=== PATIENT | female | born 1985 | race African-American/Black ===

== ENCOUNTER 2017-11-07 13:16 | Emergency (ER) | payer SELFPAY ==
[2017-11-07 13:50] LABS: U PREG PATIENT POSITIVE (NEG)
[2017-11-07 14:10] LABS: BILIRUBIN,URINE NEG (NEG); CLARITY,URINE CLOUDY; COLOR,URINE YELLOW; GLUCOSE,URINE NEG (NEG); NITRITE,URINE NEG (NEG); UROBILINOGEN,URINE 0.2 mg/dL (0.2 mg/dL)
[2017-11-07 14:11] LABS: BACTERIA,URINE FEW /HPF (0-FEW); SQUAMOUS EPITHELIAL CELL,UR MOD /LPF
--- NOTE | 2017-11-07 14:54 | RAD ---
EXAM: Obstetrics sonogram. HISTORY: Vaginal bleeding. TECHNIQUE: Sonographic imaging of the gravid uterus was performed. COMPARISON: None. FINDINGS: The uterus measures 9.5 x 7.0 x 6.0 cm. There is an intrauterine gestational sac with yolk sac. The mean sac diameter is 5.5 mm. The yolk sac measures 3.4 mm. No pole is seen. There is an ill-defined region of hypoechogenicity adjacent to the gestational sac measuring 7 mm, possibly a small subchorionic hematoma. The ovaries are normal in size. There is a 2.8 cm right ovarian cyst. There is normal blood flow within both ovaries. There are bilateral ovarian follicles. IMPRESSION: 1. Small intrauterine gestational sac with yolk sac. No pole is seen at this early gestation. Correlate with serial beta hCG levels. Sonographic follow-up can be performed to assess viability. 2. Suspected 7 mm subchorionic hematoma along the gestational sac. 3. 2.8 cm right ovarian cyst. Electronically signed by: Blanquita Bha MD (11/07/2017 2:52 PM) [facility]
--- NOTE | 2017-11-07 15:23 | PHYS DOC ---
Past History Past Medical History: Other Past Surgical History: Other Smoking: Non-smoker Alcohol Use: None Drug Use: None Adult General Chief Complaint Chief Complaint: VAGINAL BLEEDING HPI HPI 32 -year-old female patient E2 A1 with LMP of September 27 at 5 weeks of gestation complaining of vaginal bleeding since yesterday. Patient states she had to home positive test and has appointment with clinic next week. Patient states she had intercourse 2 days ago and since yesterday had vaginal spotting while she is wiping herself as a small amount of dark-colored blood with mild lower abdominal cramping pain without nausea, vomiting, urinary symptoms, fever and chills. She had O+ blood type. Review of Systems Review of Systems Constitutional: Denies fever or chills [] Eyes: Denies change in visual acuity, redness, or eye pain [] HENT: Denies nasal congestion or sore throat [] Respiratory: Denies cough or shortness of breath [] Cardiovascular: No additional information not addressed in HPI [] GI: Denies abdominal pain, nausea, vomiting, bloody stools or diarrhea [] : Denies dysuria or hematuria, reports vaginal bleeding[] Musculoskeletal: Denies back pain or joint pain [] Integument: Denies rash or skin lesions [] Neurologic: Denies headache, focal weakness or sensory changes [] Endocrine: Denies polyuria or polydipsia [] All other systems were reviewed and found to be within normal limits, except as documented in this note. Allergies Allergies Allergies Coded Allergies Type Severity Reaction Last Updated Verified No Known Drug Allergies 11/07/17 No Physical Exam Physical Exam Constitutional: Well developed, well nourished, no acute distress, non-toxic appearance. [] HENT: Normocephalic, atraumatic, oropharynx moist, no oral exudates, nose normal. [] Eyes: PERRLA, EOMI, conjunctiva normal, no discharge. [] Neck: Normal range of motion, no tenderness, supple, no stridor. [] Cardiovascular:Heart rate regular rhythm, no murmur [] Lungs & Thorax: Bilateral breath sounds clear to auscultation [] Abdomen: Bowel sounds normal, soft, no tenderness, no masses, no pulsatile masses, she refuses vaginal exam. [] Skin: Warm, dry, no erythema, no rash. [] Back: No tenderness, no CVA tenderness. [] Extremities: No tenderness, no cyanosis, no clubbing, ROM intact, no edema. [] Neurologic: Alert and oriented X 3, normal motor function, normal sensory function, no focal deficits noted. [] Psychologic: Affect normal, judgement normal, mood normal. [] Current Patient Data Vital Signs Vital Signs Date Time Temp Pulse Resp B/P (MAP) Pulse Ox O2 Delivery O2 Flow Rate FiO2 11/07/17 13:20 98.6 93 20 96 Room Air Lab Results Laboratory Tests Test 11/07/17 13:23 11/07/17 14:30 Urine Collection Type Unknown Urine Color Yellow Urine Clarity Cloudy Urine pH 5.5 Urine Specific [place] 1.020 Urine Protein Neg (NEG-TRACE) Urine Glucose (UA) Neg mg/dL (NEG) Urine Ketones (Stick) Neg mg/dL (NEG) Urine Blood Large (NEG) Urine Nitrite Neg (NEG) Urine Bilirubin Neg (NEG) Urine Urobilinogen Dipstick 0.2 mg/dL (0.2 mg/dL) Urine Leukocyte Esterase Neg (NEG) Urine RBC 3-5 /HPF (0-2) Urine WBC 1-4 /HPF (0-4) Urine Squamous Epithelial Cells Mod /LPF Urine Bacteria Few /HPF (0-FEW) Urine Mucus Slight /LPF Urine Test Positive (NEG) Maternal Serum HCG Beta Subunit 959 mIU/mL (0-6) H EKG EKG [] Radiology/Procedures Radiology/Procedures [][address] [address] IMAGING REPORT Signed PATIENT: SOLITARIO MOSHER ACCOUNT: [id number] : 1985 LOCATION: ER AGE: 32 SEX: F EXAM STATUS: PRE ER ORD. PHYSICIAN: JS FOFANA MD REASON: vaginal bleeding in PROCEDURE: OB <14 WKS EXAM: Obstetrics sonogram. HISTORY: Vaginal bleeding. TECHNIQUE: Sonographic imaging of the gravid uterus was performed. COMPARISON: None. FINDINGS: The uterus measures 9.5 x 7.0 x 6.0 cm. There is an intrauterine gestational sac with yolk sac. The mean sac diameter is 5.5 mm. The yolk sac measures 3.4 mm. No pole is seen. There is an ill-defined region of hypoechogenicity adjacent to the gestational sac measuring 7 mm, possibly a small subchorionic hematoma. The ovaries are normal in size. There is a 2.8 cm right ovarian cyst. There is normal blood flow within both ovaries. There are bilateral ovarian follicles. IMPRESSION: 1. Small intrauterine gestational sac with yolk sac. No pole is seen at this early gestation. Correlate with serial beta hCG levels. Sonographic follow-up can be performed to assess viability. 2. Suspected 7 mm subchorionic hematoma along the gestational sac. 3. 2.8 cm right ovarian cyst. Electronically signed by: Blanquita Bah MD (11/07/2017 2:52 PM) [facility] DICTATED AND SIGNED BY: BLANQUITA BAH MD DATE: 11/07/17 1449 CC: JS FOFANA MD; PCP,NO ~ Course & Med Decision Making Course & Med Decision Making Pertinent Labs and Imaging studies reviewed. (See chart for details) Evaluation of patient in ER showed 32-year-old female patient at almost 5 weeks of gestation complaining of vaginal spotting since yesterday he patient had hCG level of 959 and ultrasound of intrauterine without heart rate. Patient instructed to repeat hCG level and follow with [facility] in 48 hours and return to ER if develops increasing of bleeding.] Dragon Disclaimer Dragon Disclaimer This electronic medical record was generated, in whole or in part, using a voice recognition dictation system. Departure Departure: Impression: Primary Impression: Threatened Disposition: HOME, SELF-CARE (At 1521) Condition: STABLE Referrals: PCP,NO (PCP) Patient Instructions: Threatened Miscarriage Additional Instructions: Follow-up with your [facility] in 2 days for repeat blood tests Pelvic rest Return to ER if not getting better JS FOFANA MD Nov 07, 2017 15:23
[2017-11-07 15:34] VITALS: BP 120/65
== END 2017-11-07 15:34 | disposition home or self-care (01) ==
LOC: ER 13:16
DX: O20.0 Threatened abortion (principal); Z3A.01 Less than 8 weeks gestation of pregnancy
CPT/HCPCS: 36415; 76801; 81001; 81025; 84702; 99285

== ENCOUNTER 2017-12-01 15:41 | Emergency (ER) | payer SELFPAY ==
[~2017-12-01] VITALS: Ht 170.2 cm; Wt 77.6 kg
[2017-12-01 16:08] LABS: BASO % 1 % (0-3); EOS # 0.1 x10^3/uL (0.0-0.7); EOS % 1 % (0-3); HEMATOCRIT 36.7 % (36.0-47.0); HEMOGLOBIN 12.4 g/dL (12.0-15.5); LYMPH # 1.7 x10^3/uL (1.0-4.8); LYMPH % 35 % (24-48); MEAN CORPUSCULAR HEMOGLOBIN 31 pg (25-35); MEAN CORPUSCULAR HGB CONC 34 g/dL (31-37); MEAN CORPUSCULAR VOLUME 91 fL (79-100); MONO # 0.4 x10^3/uL (0.0-1.1); MONO % 8 % (0-9); NEUT # 2.6 x10^3uL (1.8-7.7); NEUT % 55 % (31-73); PLATELET COUNT 261 x10^3/uL (140-400); RED BLOOD COUNT 4.03 x10^6/uL (3.50-5.40); RED CELL DISTRIBUTION WIDTH 13.6 % (11.5-14.5); WHITE BLOOD COUNT 4.8 x10^3/uL (4.0-11.0)
[2017-12-01 16:19] LABS: ALBUMIN 3.8 g/dL (3.4-5.0); CALCIUM 9.6 mg/dL (8.5-10.1); DIRECT BILIRUBIN 0.1 mg/dL (0.0-0.2); GFR 78.8; POTASSIUM 4.2 mmol/L (3.5-5.1); TOTAL BILIRUBIN 0.2 mg/dL (0.2-1.0); TOTAL PROTEIN 7.9 g/dL (6.4-8.2)
[2017-12-01 16:27] VITALS: BP 125/79
[2017-12-01 16:48] LABS: BARBITURATES NEG (NEG); BENZODIAZEPINES NEG (NEG); CANNABINOIDS POS (NEG); COCAINE NEG (NEG); METHADONE NEG (NEG); OPIATES NEG (NEG); PHENCYCLIDINE NEG (NEG)
[2017-12-01 16:49] LABS: AMPHETAMINE/METHAMPHETAMINE NEG (NEG)
[2017-12-01 16:59] LABS: BILIRUBIN,URINE NEG (NEG); CLARITY,URINE CLOUDY; COLOR,URINE YELLOW; GLUCOSE,URINE NEG (NEG)
[2017-12-01 17:00] LABS: BACTERIA,URINE MANY /HPF (0-FEW); NITRITE,URINE NEG (NEG); SQUAMOUS EPITHELIAL CELL,UR MANY /LPF; UROBILINOGEN,URINE 0.2 mg/dL (0.2 mg/dL)
[2017-12-01] MEDS ORDERED: CIPROFLOXACIN HCL 500 MG TABLET PO ONE (17:15)
--- NOTE | 2017-12-01 17:20 | PHYS DOC ---
Past History Past Medical History: Depression, Other Past Surgical History: Other Smoking: Non-smoker Alcohol Use: None Drug Use: Marijuana Adult General Chief Complaint Chief Complaint: SUICDAL IDEATION HPI HPI 32 years old female patient brought in by EMS because of suicidal ideation. Patient was at [facility] and stated she has suicidal ideation and in one month was informed. Patient states she has suicidal ideation with plan of jumping in front of traffic yesterday but doesn't have suicidal ideation today. Patient denies homicidal ideation and hallucination. Patient had previous mental hospitalization and suicidal ideation. Patient had a miscarriage 2 weeks ago. Patient denies any pain or vaginal bleeding and discharge. Review of Systems Review of Systems Constitutional: Denies fever or chills [] Eyes: Denies change in visual acuity, redness, or eye pain [] HENT: Denies nasal congestion or sore throat [] Respiratory: Denies cough or shortness of breath [] Cardiovascular: No additional information not addressed in HPI [] GI: Denies abdominal pain, nausea, vomiting, bloody stools or diarrhea [] : Denies dysuria or hematuria [] Musculoskeletal: Denies back pain or joint pain [] Integument: Denies rash or skin lesions [] Neurologic: Denies headache, focal weakness or sensory changes [] Endocrine: Denies polyuria or polydipsia [] All other systems were reviewed and found to be within normal limits, except as documented in this note. Current Medications Current Medications Current Medications Medications (Trade) Dose Ordered Sig/Akil Start Time Stop Time Status Last Admin Dose Admin Ciprofloxacin (Cipro) 500 mg 1X ONCE 12/01/17 17:15 12/01/17 17:16 Allergies Allergies Allergies Coded Allergies Type Severity Reaction Last Updated Verified No Known Drug Allergies 11/07/17 No Physical Exam Physical Exam Constitutional: Well developed, well nourished, no acute distress, non-toxic appearance. [] HENT: Normocephalic, atraumatic Eyes: PERRLA, EOMI, conjunctiva normal, no discharge. [] Neck: Normal range of motion, no tenderness, supple, no stridor. [] Cardiovascular:Heart rate regular rhythm, no murmur [] Lungs & Thorax: Bilateral breath sounds clear to auscultation [] Abdomen: Bowel sounds normal, soft, no tenderness, no masses, no pulsatile masses. [] Skin: Warm, dry, no erythema, no rash. [] Back: No tenderness, no CVA tenderness. [] Extremities: No tenderness, no cyanosis, no clubbing, ROM intact, no edema. [] Neurologic: Alert and oriented X 3, normal motor function, normal sensory function, no focal deficits noted. [] Psychologic: Affect normal, judgement normal, suicidal ideation[] Current Patient Data Vital Signs Vital Signs Date Time Temp Pulse Resp B/P (MAP) Pulse Ox O2 Delivery O2 Flow Rate FiO2 12/01/17 16:27 98.3 94 18 100 Room Air Lab Results Laboratory Tests Test 12/01/17 15:56 12/01/17 16:00 White Blood Count 4.8 x10^3/uL (4.0-11.0) Red Blood Count 4.03 x10^6/uL (3.50-5.40) Hemoglobin 12.4 g/dL (12.0-15.5) Hematocrit 36.7 % (36.0-47.0) Mean Corpuscular Volume 91 fL (79-100) Mean Corpuscular Hemoglobin 31 pg (25-35) Mean Corpuscular Hemoglobin Concent 34 g/dL (31-37) Red Cell Distribution Width 13.6 % (11.5-14.5) Platelet Count 261 x10^3/uL (140-400) Neutrophils (%) (Auto) 55 % (31-73) Lymphocytes (%) (Auto) 35 % (24-48) Monocytes (%) (Auto) 8 % (0-9) Eosinophils (%) (Auto) 1 % (0-3) Basophils (%) (Auto) 1 % (0-3) Neutrophils # (Auto) 2.6 x10^3uL (1.8-7.7) Lymphocytes # (Auto) 1.7 x10^3/uL (1.0-4.8) Monocytes # (Auto) 0.4 x10^3/uL (0.0-1.1) Eosinophils # (Auto) 0.1 x10^3/uL (0.0-0.7) Basophils # (Auto) 0.0 x10^3/uL (0.0-0.2) Sodium Level 140 mmol/L (136-145) Potassium Level 4.2 mmol/L (3.5-5.1) Chloride Level 105 mmol/L (98-107) Carbon Dioxide Level 30 mmol/L (21-32) Anion Gap 5 (6-14) L Blood Urea Nitrogen 12 mg/dL (7-20) Creatinine 1.0 mg/dL (0.6-1.0) Estimated GFR (Cockcroft-Gault) 78.8 Glucose Level 88 mg/dL (70-99) Calcium Level 9.6 mg/dL (8.5-10.1) Total Bilirubin 0.2 mg/dL (0.2-1.0) Direct Bilirubin 0.1 mg/dL (0.0-0.2) Aspartate Amino Transferase (AST) 17 U/L (15-37) Alanine Aminotransferase (ALT) 25 U/L (14-59) Alkaline Phosphatase 75 U/L (46-116) Total Protein 7.9 g/dL (6.4-8.2) Albumin 3.8 g/dL (3.4-5.0) Ethyl Alcohol Level < 10 mg/dL (0-10) Urine Collection Type Unknown Urine Color Yellow Urine Clarity Cloudy Urine pH 5.5 Urine Specific [place] 1.025 Urine Protein Neg (NEG-TRACE) Urine Glucose (UA) Neg mg/dL (NEG) Urine Ketones (Stick) Trace mg/dL (NEG) Urine Blood Trace (NEG) Urine Nitrite Neg (NEG) Urine Bilirubin Neg (NEG) Urine Urobilinogen Dipstick 0.2 mg/dL (0.2 mg/dL) Urine Leukocyte Esterase Small (NEG) Urine RBC 3-5 /HPF (0-2) Urine WBC 5-10 /HPF (0-4) Urine Squamous Epithelial Cells Many /LPF Urine Bacteria Many /HPF (0-FEW) Urine Mucus Mod /LPF Urine Opiates Screen Neg (NEG) Urine Methadone Screen Neg (NEG) Urine Barbiturates Neg (NEG) Urine Phencyclidine Screen Neg (NEG) Urine Amphetamine/Methamphetamine Neg (NEG) Urine Benzodiazepines Screen Neg (NEG) Urine Cocaine Screen Neg (NEG) Urine Cannabinoids Screen Pos (NEG) Urine Ethyl Alcohol Neg (NEG) EKG EKG [] Radiology/Procedures Radiology/Procedures [] Course & Med Decision Making Course & Med Decision Making Pertinent Labs reviewed. (See chart for details) Evaluation of patient in ER showed 32-year-old female patient brought in by EMS because of suicidal ideation. Patient had unremarkable physical exam except for suicidal ideation. Labs showed mild UTI and patient treated with Cipro. Waiting for psych evaluation. Patient care transferred to Dr. Haider at 1800. I took over care of the patient at 1800. The patient was talking to the [facility] counselor. After their discussion, I was invited into the room to talk about the plan of care. The [facility] counselor developed a safety plan with the patient. They both feel as though the patient can safely be discharged to home. She has an appointment at their walk-in clinic at 9 AM tomorrow. The patient stated verbal understanding of this. We'll also discharge her with 3 days of Keflex for UTI.[] Dragon Disclaimer Dragon Disclaimer This electronic medical record was generated, in whole or in part, using a voice recognition dictation system. Departure Departure: Impression: Primary Impression: Suicidal ideation Additional Impressions: Urinary tract infection Marijuana abuse Referrals: PCP,NO (PCP) Scripts Cephalexin (KEFLEX) 500 Mg Capsule 1 CAP PO TID for 3 Days, #9 CAP Prov: MARYLOU HAIDER DO 12/01/17 Problem Qualifiers JS FOFANA MD Dec 01, 2017 17:20 MARYLOU HAIDER DO Dec 01, 2017 19:07
--- NOTE | 2017-12-01 17:24 | NUR ---
CALLED THE [facility] FOR A MENTAL HEALTH SCREENING. THEY WOULD SET UP AVAILABLE SERVICES.
[2017-12-01] MEDS ORDERED: CEPH-264 PO (19:04)
== END 2017-12-01 20:58 | disposition home or self-care (01) ==
LOC: ER 15:41
DX: R45.851 Suicidal ideations (principal); N39.0 Urinary tract infection, site not specified; F12.10 Cannabis abuse, uncomplicated; F32.9 Major depressive disorder, single episode, unspecified
CPT/HCPCS: 36415; 80048; 80076; 80307; 81001; 85025; 99284; G0480; 87086; G0479